=== PATIENT | female | born 1935 | race Hispanic/Latino ===

== ENCOUNTER 2017-08-28 15:51 | Emergency (ER) | payer MEDICARE, BC ==
[2017-08-28 15:58] VITALS: O2SAT 98
--- NOTE | 2017-08-28 16:32 | CT ---
PROCEDURE: CT HEAD WITHOUT CONTRAST. HISTORY: r/o ICH COMPARISON: None available. TECHNIQUE: Axial computed tomography images were obtained through the head/brain without intravenous contrast. Radiation dose: Total exam DLP = 758.12 mGy-cm. This CT exam was performed using one or more of the following dose reduction techniques: Automated exposure control, adjustment of the mA and/or kV according to patient size, and/or use of iterative reconstruction technique. FINDINGS: HEMORRHAGE: No intracranial hemorrhage. BRAIN: Harman-white matter differentiation is preserved. There is no mass, mass effect or abnormal extra-axial fluid collection. There is no territorial infarction. The midline sagittal structures are normal. VENTRICLES: There is mild age-related global parenchymal volume loss and proportionate enlargement of the ventricles and cortical sulci. There is mild asymmetry in the size of the lateral ventricles, right larger than left, likely an anatomic variant the CALVARIUM: There is no calvarial fracture or extracranial soft tissue swelling. PARANASAL SINUSES: There is moderate mucosal thickening in the ethmoid air cells and aerosolized secretions in the right posterior ethmoid air cells. The remaining included paranasal sinuses are predominantly clear. MASTOID AIR CELLS: Predominantly clear. OTHER FINDINGS: None. IMPRESSION: No acute intracranial abnormality. Chronic ethmoid sinusitis. Aerosolized secretions in the right posterior ethmoid air cells may represent superimposed acute sinusitis in the appropriate clinical setting.
--- NOTE | 2017-08-28 16:38 | ED PDOC ---
HPI: Head Injury Time Seen by Provider: 08/28/17 15:56 Chief Complaint (Nursing): Trauma Chief Complaint (Provider): fall this morning History Per: Patient Injury Occurred (Timing): Hours Ago: (approx 1130am today) Patient States: Fell Striking Head Severity: Mild Loss Of Consciousness: No Front/Back Head: 1 - scant abrasion Additional Complaint(s): 82yo female states missed a stair coming down her concrete outdoor stairs this morning, falling back and striking back of head on ground. Was dazed but denied preceeding or following LOC, focal weakness, change in vision, nausea or back/ neck pain. Since event has developed vague pressure in back of head radiating anteriorly. Denies nausea, change vision or weakness/numbness. Past Medical History Reviewed: Historical Data, Nursing Documentation, Vital Signs Vital Signs: Last Vital Signs Temp 98.8 F 08/28/17 15:56 Pulse 84 08/28/17 15:56 Resp 19 08/28/17 15:56 BP Pulse Ox 98 08/28/17 15:56 - Medical History PMH: Hypercholesterolemia Other PMH: takes ASA 81mg daily - Family History Family History: States: Unknown Family Hx - Living Arrangements Living Arrangements: Alone - Social History Current smoker - smoking cessation education provided: No - Allergies Allergies/Adverse Reactions: Allergies Allergy/AdvReac Type Severity Reaction Status Date / Time No Known Allergies Allergy Verified 08/28/17 15:57 Review of Systems Constitutional: Negative for: Fever Cardiovascular: Negative for: Chest Pain Respiratory: Negative for: Shortness of Breath Gastrointestinal: Negative for: Abdominal Pain Musculoskeletal: Negative for: Neck Pain, Shoulder Pain, Arm Pain, Back Pain, Hand Pain, Leg Pain Skin: Negative for: Rash, Lesions, Jaundice Neurological: Positive for: Headache (mild), Dizziness. Negative for: Weakness , Numbness, Seizures - ECG O2 Sat by Pulse Oximetry: 98 Medical Decision Making Medical Decision Making: CT brain/ CSpine ordered given mechanism and on antiplatelet. EKG ordered given mild dizziness. 445p CT reports reviewed, neg for bleed or fracture 505p Re-eval feeling better, BP to be followed as outpatient. Ambulating steady gait. Disposition - Clinical Impression Clinical Impression: Head injury, Concussion - Patient ED Disposition Is Patient to be Admitted: No Counseled Patient/Family Regarding: Studies Performed, Diagnosis, Need For Followup - Disposition Disposition: Routine/Home Disposition Time: 17:10 Condition: STABLE Instructions: Concussion in Adults, Closed Head Injury Forms: [facility] (Russian)
--- NOTE | 2017-08-28 17:01 | CT ---
PROCEDURE: CT Cervical Spine without contrast HISTORY: trauma r/o fx COMPARISON: None available. TECHNIQUE: Axial computed tomography images were obtained of the cervical spine without the use of intravenous contrast. Coronal and sagittal reformatted images were created and reviewed. Radiation dose: Total exam DLP = 387.71 mGy-cm. This CT exam was performed using one or more of the following dose reduction techniques: Automated exposure control, adjustment of the mA and/or kV according to patient size, and/or use of iterative reconstruction technique. FINDINGS: VERTEBRAE: No fracture. Normal alignment. No destructive bony lesion. DISCS/SPINAL CANAL/NEURAL FORAMINA: Mild multilevel cervical spondylosis appreciate with marked endplate degenerative sclerosis at the mid to inferior levels. Multilevel facet joint degenerative arthropathy appears advanced at the mid cervical spine with prevertebral paraspinal soft tissues appear diffusely unremarkable. Marked disc height loss is appreciate the mid to inferior cervical spine. There is no bony central canal or neural from stenosis appreciated at the C2-3 level. At C3-4, asymmetric facet joint and uncovertebral arthropathy results in a moderate to severe right neural foraminal stenosis with none identified the left. An disc osteophyte complex results in mild central canal stenosis. At C4-5, an additional disc osteophyte complex results in a mild central canal stenosis and moderate bilateral degenerative neural foraminal stenosis is caused by degenerative osteophytes in a pattern similar to that described above. At C5-6, there is a borderline degenerative central canal stenosis caused by posterior disc osteophyte complex with moderate severe degenerative bilateral neural foraminal stenosis on degenerative basis as described above. At C6-7, a small posterior disc osteophyte complex is appreciated and borderline bilateral degenerative neural foraminal stenoses are identified PARASPINAL SOFT TISSUES: Unremarkable. OTHER FINDINGS: None. IMPRESSION: No acute fracture or spondylolisthesis. Multilevel degenerative neural foraminal stenosis are relatively advanced at the mid greater than lower cervical spine and disc osteophyte complexes result in limited central canal stenoses at multiple levels, none of which are severe. No gross disc herniation. MRI can be utilized for additional characterization if clinically warranted.
[2017-08-28 18:15] VITALS: BP 120/70; PULSE 74; RESP 20; TEMP 98.6
--- NOTE | 2017-08-29 12:56 | CARD ---
APPROVED REPORT EKG Measurement Heart [id number] <Conclusion> Normal sinus rhythm Possible Left atrial enlargement Borderline ECG
== END 2017-08-28 18:13 | disposition home or self-care (01) ==
LOC: H.ER 15:51
DX: S06.0X0A Concussion without loss of consciousness, initial encounter (principal); W19.XXXA Unspecified fall, initial encounter; Y92.89 Other specified places as the place of occurrence of the external cause; E78.00 Pure hypercholesterolemia, unspecified; J32.2 Chronic ethmoidal sinusitis; M25.78 Osteophyte, vertebrae; M48.02 Spinal stenosis, cervical region; Z79.82 Long term (current) use of aspirin